=== PATIENT | male | born 1950 | race Caucasian/White ===

== ENCOUNTER 2021-02-13 23:43 | Inpatient (IN) | payer MEDICARE, OTHER ==
[~2021-02-13] VITALS: Ht 180.3 cm; Wt 84.9 kg
[~2021-02-13 23:43] MED LIST: ACCUNEB 0.1.25 MG/1 INH; ACETAMINOPHEN650 M1 PO; AMANTADINE HCL100 M1 PO; AMANTADINE HCL100 M2 PO; AMANTADINE100 MG PO; ARICEPT ODT5 MG PO; ARTANE2 MG PO; ASPIRIN81 M1 PO; ATENOLOL25 MG PO; ATIVAN0.5 MG IM; ATIVAN1 MG IM; ATIVAN1 MG PO; ATIVAN2 MG/ML IM; AUGMENTIN 75 ML75 ML PO; BACTROBAN22 NAS; BROMOCRIPTINE2.5 MG PO; Bromocriptine2.5 MG PO; CETIRIZINE10 MG PO; CIPROFLOXACIN500 M4 PO; CLINDAMYCIN300 MG PO; CYMBALTA30 MG PO; DIFLUCAN100 MG PO; DULCOLAX10 MG PO; DURAGESIC 25 M25 MCG TD; EXELON4.6 MG/24 T; EXELON4.6 MG/24 TD; EXELON9.5 MG/24 T; FANAPT6 MG PO; FANAPT8 MG PO; FLECTOR1.3% TP; FLOMAX0.4 MG PO; GLUCAGON EMERGEN1 M1 IM; GLUCAGON EMERGEN1 MG PO; HALDOL1 MG PO; HUMALOG MI100 UNIT/1 SC; HYDROCODONE BIT1 T11 PO; HYDROXYZINE HCL50 MG PO; HYZAAR 12.5 MG-1 TA1 PO; HYZAAR 50/12.5M1 TAB PO; IBU-8800 MG PO; IBUPROFEN800 MG PO; INVOKAMET1 TA1 PO; JUVEN PO; KEFLEX500 MG PO; KLONOPIN0.5 MG PO; KLONOPIN1 MG PO; LANTUS100 U/ML SC; LASIX40 MG PO; LEVOCETIRIZINE D5 MG PO; LISINOPRIL2.5 MG PO; Lovenox40 MG/0.4 SC; MAG-OX 400400 MG PO; MAGNESIUM OXID400 MG PO; MAXIPIME1 GM IM; METFORMIN500 MG PO; MIRALAX POWDER17 G1 PO; MIRAPEX1.5 MG PO; MOM30 M1 PO; NAMENDA XR TITR28 MG PO; NAMENDA1 TAB PO; NAMENDA10 MG PO; NAMENDA5 MG PO; NEUPRO4 MG/24 HR T; NEUPRO4 MG/24 HR TD; NOVOLOG 70/30 M10 ML SC; NOVOLOG FLEX100 U/ML SC; NOVOLOG MI100 UNIT/1 SQ; NOVOLOG1 UNIT/0.0 SC; NUDEXTA PO; OMEPRAZOLE20 M1 PO; POTASSIUM20 MEQ PO; PRAVACHOL40 MG PO; PRINIVIL5 M1 PO; PROSTAT PO; PROTONIX40 MG PO; REMERON15 M1 PO; REMERON30 M1 PO; REQUIP XL8 MG PO; REQUIP0.5 MG PO; REQUIP2 MG PO; REQUIP3 MG PO; REQUIP4 MG PO; REQUIP5 MG PO; RESTORIL15 MG PO; SINEMET 25-1001 TA1 PO; SINEMET 25-2501 TA1 PO; SINEMET PO; STRESS PO; TAMSULOSIN HCL0.4 MG PO; TRIHEXYPHENIDYL2 M3 PO; TRIHEXYPHENIDYL2 MG PO; TYLENOL 8 HOUR650 MG PO; TYLENOL650 M1 PO; VICODIN1 TAB PO; VITAMIN B11000 MCG/M IM; VITAMIN B121000 MCG IM; VITAMIN D1000 IU PO; VITAMIN D2000 IU PO; ZOFRAN4 MG/5 ML PO; ZYRTEC10 M1 PO
[2021-02-13 23:57] VITALS: BP 132/66
[2021-02-14] VITALS (7 sets, daily range): BP systolic 110–145; BP diastolic 58–87
[2021-02-14 00:10] LABS: BASO % 0.1 % (0.0-1.0); HEMATOCRIT 47.9 % (42.0-52.0); LYMPH # 0.5 10*3/uL (1.3-4.4); LYMPH % 6.6 % (27.0-41.0); MEAN CELL VOLUME 90.7 fl (80.0-94.0); MEAN CORPUSCULAR HGB 30.1 pg (27.0-31.0); MEAN CORPUSCULAR HGB CONC 33.2 g/dl (33.0-37.0); MEAN PLATELET VOLUME 11.4 fl (9.6-12.3); MONO # 0.4 10*3/uL (0.1-1.0); MONO % 5.3 % (3.0-9.0); NEUT # 7.1 10*3/uL (2.3-7.9); NEUT % 87.9 % (47.0-73.0); PLATELET COUNT AUTOMATED 181 10*3/uL (130-400); RED BLOOD COUNT 5.28 10*6/uL (4.50-5.90); RED CELL DISTRI WIDTH 12.9 % (0-14.5); WHITE BLOOD COUNT 8.1 10*3/uL (4.8-10.8)
[2021-02-14 00:35] LABS: ALBUMIN 3.1 gm/dl (3.1-4.5); ALKALINE PHOSPHATASE 48 U/L (45-117); BUN 19 mg/dl (7-24); CHLORIDE 100 mmol/L (98-107); POTASSIUM 3.5 mmol/L (3.5-5.1); SGOT/AST 18 IU/L (3-35); SGPT/ALT 8 U/L (12-78); SODIUM 138 mmol/L (136-145); TOTAL PROTEIN 7.1 gm/dL (6.4-8.2)
[2021-02-14 01:33] LABS: BILIRUBIN 1+ (Negative); BLOOD Negative (Negative); CLARITY Clear (Clear); COLOR Dark Yellow (Yellow); GLUCOSE Trace (Negative); KETONE 2+ (Negative); LEUKO ESTERASE Negative (Negative); NITRITE Negative (Negative); SPECIFIC GRAVITY >= 1.030 (1.001-1.030)
[2021-02-14 01:53] LABS: BACTERIA TRACE
[2021-02-14 06:05] LABS: ALBUMIN 2.8 gm/dl (3.1-4.5); BUN 21 mg/dl (7-24); CHLORIDE 102 mmol/L (98-107); CREATININE 0.85 mg/dL (0.70-1.30); POTASSIUM 3.9 mmol/L (3.5-5.1); SGOT/AST 18 IU/L (3-35); SGPT/ALT 13 U/L (12-78); SODIUM 137 mmol/L (136-145)
[2021-02-14 06:08] LABS: ALKALINE PHOSPHATASE 42 U/L (45-117); TOTAL PROTEIN 6.6 gm/dL (6.4-8.2)
[2021-02-14 06:28] LABS: HEMATOCRIT 46.1 % (42.0-52.0); LYMPH # 0.5 10*3/uL (1.3-4.4); LYMPH % 6.9 % (27.0-41.0); MEAN CELL VOLUME 92.9 fl (80.0-94.0); MEAN CORPUSCULAR HGB 30.2 pg (27.0-31.0); MEAN CORPUSCULAR HGB CONC 32.5 g/dl (33.0-37.0); MONO # 0.3 10*3/uL (0.1-1.0); MONO % 4.8 % (3.0-9.0); NEUT # 6.2 10*3/uL (2.3-7.9); PLATELET COUNT AUTOMATED 164 10*3/uL (130-400); RED BLOOD COUNT 4.96 10*6/uL (4.50-5.90); WHITE BLOOD COUNT 7.1 10*3/uL (4.8-10.8)
[2021-02-14] MEDS ORDERED: NAMENDA5 M1 PO (12:14)
[2021-02-14] MEDS ORDERED: NAMENDA10 MG PO (12:14)
[2021-02-14] MEDS ORDERED: HEARTBURN PREVE20 MG PO (12:17)
[2021-02-14] MEDS ORDERED: METFORMIN HYDR500 MG PO (12:20)
[2021-02-14] MEDS ORDERED: ELIQUIS5 M1 PO (12:21)
[2021-02-14] MEDS ORDERED: MIRALAX POWDER17 G1 PO (12:23)
[2021-02-15] VITALS: BP 169/77
[2021-02-15 06:17] LABS: HEMATOCRIT 45.7 % (42.0-52.0); LYMPH # 0.5 10*3/uL (1.3-4.4); LYMPH % 12.9 % (27.0-41.0); MEAN CELL VOLUME 91.6 fl (80.0-94.0); MEAN CORPUSCULAR HGB 29.9 pg (27.0-31.0); MEAN CORPUSCULAR HGB CONC 32.6 g/dl (33.0-37.0); MEAN PLATELET VOLUME 11.8 fl (9.6-12.3); MONO # 0.2 10*3/uL (0.1-1.0); MONO % 4.5 % (3.0-9.0); NEUT # 3.1 10*3/uL (2.3-7.9); NEUT % 82.1 % (47.0-73.0); PLATELET COUNT AUTOMATED 183 10*3/uL (130-400); RED BLOOD COUNT 4.99 10*6/uL (4.50-5.90); RED CELL DISTRI WIDTH 12.9 % (0-14.5); WHITE BLOOD COUNT 3.8 10*3/uL (4.8-10.8)
[2021-02-15 06:29] LABS: BUN 22 mg/dl (7-24); CHLORIDE 107 mmol/L (98-107); LDH 152 U/L (87-241); POTASSIUM 3.7 mmol/L (3.5-5.1); SODIUM 142 mmol/L (136-145)
[2021-02-15 08:00] VITALS: BP 160/94
[2021-02-15 12:00] VITALS: BP 128/45
[2021-02-15 16:00] VITALS: BP 116/68
[2021-02-15 20:00] VITALS: BP 159/90
[2021-02-16] VITALS: BP 111/65
[2021-02-16 05:37] LABS: ALBUMIN 2.5 gm/dl (3.1-4.5); ALKALINE PHOSPHATASE 34 U/L (45-117); BUN 31 mg/dl (7-24); CHLORIDE 105 mmol/L (98-107); LDH 240 U/L (87-241); POTASSIUM 3.8 mmol/L (3.5-5.1); SGOT/AST 29 IU/L (3-35); SGPT/ALT 23 U/L (12-78); SODIUM 140 mmol/L (136-145); TOTAL PROTEIN 6.4 gm/dL (6.4-8.2)
[2021-02-16 06:19] LABS: HEMATOCRIT 46.5 % (42.0-52.0); LYMPH # 0.4 10*3/uL (1.3-4.4); LYMPH % 19.3 % (27.0-41.0); MEAN CELL VOLUME 93.4 fl (80.0-94.0); MEAN CORPUSCULAR HGB 29.7 pg (27.0-31.0); MEAN CORPUSCULAR HGB CONC 31.8 g/dl (33.0-37.0); MEAN PLATELET VOLUME 11.7 fl (9.6-12.3); MONO # 0.2 10*3/uL (0.1-1.0); MONO % 10.4 % (3.0-9.0); NEUT # 1.4 10*3/uL (2.3-7.9); NEUT % 69.8 % (47.0-73.0); PLATELET COUNT AUTOMATED 184 10*3/uL (130-400); RED BLOOD COUNT 4.98 10*6/uL (4.50-5.90); RED CELL DISTRI WIDTH 12.8 % (0-14.5)
[2021-02-16 08:00] VITALS: BP 150/87
[2021-02-16 11:26] LABS: BILIRUBIN Negative (Negative); BLOOD Trace-Intact (Negative); CLARITY Clear (Clear); COLOR Yellow (Yellow); GLUCOSE Negative (Negative); KETONE 1+ (Negative); LEUKO ESTERASE Negative (Negative); NITRITE Negative (Negative); SPECIFIC GRAVITY >= 1.030 (1.001-1.030)
[2021-02-16 12:00] VITALS: BP 138/69
[2021-02-16 16:00] VITALS: BP 136/82
[2021-02-16 20:00] VITALS: BP 144/89
[2021-02-17] VITALS: BP 125/70
[2021-02-17 05:56] LABS: BUN 31 mg/dl (7-24); CHLORIDE 105 mmol/L (98-107); CREATININE 0.67 mg/dL (0.70-1.30); POTASSIUM 3.6 mmol/L (3.5-5.1); SODIUM 138 mmol/L (136-145)
[2021-02-17 06:04] LABS: HEMATOCRIT 42.1 % (42.0-52.0); LYMPH # 0.4 10*3/uL (1.3-4.4); LYMPH % 13.9 % (27.0-41.0); MEAN CELL VOLUME 90.9 fl (80.0-94.0); MEAN CORPUSCULAR HGB 30.2 pg (27.0-31.0); MEAN CORPUSCULAR HGB CONC 33.3 g/dl (33.0-37.0); MEAN PLATELET VOLUME 11.5 fl (9.6-12.3); MONO # 0.3 10*3/uL (0.1-1.0); MONO % 10.8 % (3.0-9.0); NEUT # 1.9 10*3/uL (2.3-7.9); NEUT % 74.1 % (47.0-73.0); PLATELET COUNT AUTOMATED 180 10*3/uL (130-400); RED BLOOD COUNT 4.63 10*6/uL (4.50-5.90); RED CELL DISTRI WIDTH 12.6 % (0-14.5); WHITE BLOOD COUNT 2.6 10*3/uL (4.8-10.8)
[2021-02-17 08:00] VITALS: BP 103/50
[2021-02-17 12:00] VITALS: BP 138/110
[2021-02-17 16:00] VITALS: BP 103/59
[2021-02-17 20:00] VITALS: BP 93/64
[2021-02-18] VITALS: BP 130/83
[2021-02-18 08:00] VITALS: BP 114/71
[2021-02-18 08:10] LABS: ALBUMIN 2.1 gm/dl (3.1-4.5); ALKALINE PHOSPHATASE 28 U/L (45-117); CHLORIDE 111 mmol/L (98-107); CREATININE 0.63 mg/dL (0.70-1.30); POTASSIUM 3.4 mmol/L (3.5-5.1); SGOT/AST 29 IU/L (3-35); SGPT/ALT 21 U/L (12-78); SODIUM 146 mmol/L (136-145); TOTAL PROTEIN 5.4 gm/dL (6.4-8.2)
[2021-02-18 08:13] LABS: BUN 20 mg/dl (7-24)
[2021-02-18 12:00] VITALS: BP 126/92
[2021-02-18 16:00] VITALS: BP 105/58
[2021-02-19] VITALS: BP 130/56
[2021-02-19 06:28] LABS: EOS % 0.9 % (1.0-4.0); LYMPH # 0.7 10*3/uL (1.3-4.4); LYMPH % 18.8 % (27.0-41.0); MEAN CELL VOLUME 90.9 fl (80.0-94.0); MEAN CORPUSCULAR HGB 29.8 pg (27.0-31.0); MEAN CORPUSCULAR HGB CONC 32.8 g/dl (33.0-37.0); MEAN PLATELET VOLUME 11.1 fl (9.6-12.3); MONO # 0.4 10*3/uL (0.1-1.0); MONO % 11.3 % (3.0-9.0); NEUT # 2.4 10*3/uL (2.3-7.9); NEUT % 68.1 % (47.0-73.0); PLATELET COUNT AUTOMATED 161 10*3/uL (130-400); RED BLOOD COUNT 4.29 10*6/uL (4.50-5.90); RED CELL DISTRI WIDTH 12.8 % (0-14.5); WHITE BLOOD COUNT 3.5 10*3/uL (4.8-10.8)
[2021-02-19 06:48] LABS: ALBUMIN 1.9 gm/dl (3.1-4.5); BUN 15 mg/dl (7-24); CHLORIDE 106 mmol/L (98-107); CREATININE 0.48 mg/dL (0.70-1.30); POTASSIUM 3.5 mmol/L (3.5-5.1); SGOT/AST 29 IU/L (3-35); SGPT/ALT 20 U/L (12-78); SODIUM 141 mmol/L (136-145)
[2021-02-19 06:49] LABS: ALKALINE PHOSPHATASE 25 U/L (45-117); TOTAL PROTEIN 5.1 gm/dL (6.4-8.2)
[2021-02-19 08:00] VITALS: BP 126/64
[2021-02-19 12:00] VITALS: BP 130/62
[2021-02-19 15:01] VITALS: BP 111/69
[2021-02-19 15:09] VITALS: BP 136/81
[2021-02-19 20:00] VITALS: BP 111/61
[2021-02-20] VITALS: BP 152/84
[2021-02-20 07:50] LABS: EOS # 0.1 10*3/uL (0.0-0.4); EOS % 2.2 % (1.0-4.0); HEMATOCRIT 39.2 % (42.0-52.0); LYMPH # 0.7 10*3/uL (1.3-4.4); LYMPH % 16.9 % (27.0-41.0); MEAN CELL VOLUME 89.1 fl (80.0-94.0); MEAN CORPUSCULAR HGB 29.8 pg (27.0-31.0); MEAN CORPUSCULAR HGB CONC 33.4 g/dl (33.0-37.0); MEAN PLATELET VOLUME 10.8 fl (9.6-12.3); MONO # 0.5 10*3/uL (0.1-1.0); NEUT # 2.8 10*3/uL (2.3-7.9); NEUT % 66.7 % (47.0-73.0); PLATELET COUNT AUTOMATED 169 10*3/uL (130-400); RED CELL DISTRI WIDTH 12.6 % (0-14.5); WHITE BLOOD COUNT 4.2 10*3/uL (4.8-10.8)
[2021-02-20 08:00] VITALS: BP 124/62
[2021-02-20 08:14] LABS: ALKALINE PHOSPHATASE 29 U/L (45-117); BUN 13 mg/dl (7-24); CHLORIDE 102 mmol/L (98-107); CREATININE 0.45 mg/dL (0.70-1.30); POTASSIUM 3.7 mmol/L (3.5-5.1); SGOT/AST 26 IU/L (3-35); SGPT/ALT 23 U/L (12-78); SODIUM 136 mmol/L (136-145); TOTAL PROTEIN 5.4 gm/dL (6.4-8.2)
[2021-02-20 12:00] VITALS: BP 132/64
[2021-02-20 16:00] VITALS: BP 112/72
[2021-02-20 20:00] VITALS: BP 147/84
[2021-02-21] VITALS: BP 146/77
[2021-02-21 07:43] LABS: BASO % 0.5 % (0.0-1.0); EOS # 0.2 10*3/uL (0.0-0.4); EOS % 3.8 % (1.0-4.0); HEMATOCRIT 41.3 % (42.0-52.0); LYMPH # 0.8 10*3/uL (1.3-4.4); LYMPH % 17.6 % (27.0-41.0); MEAN CELL VOLUME 89.6 fl (80.0-94.0); MEAN CORPUSCULAR HGB 29.5 pg (27.0-31.0); MEAN CORPUSCULAR HGB CONC 32.9 g/dl (33.0-37.0); MONO # 0.6 10*3/uL (0.1-1.0); MONO % 13.6 % (3.0-9.0); NEUT # 2.7 10*3/uL (2.3-7.9); NEUT % 62.9 % (47.0-73.0); PLATELET COUNT AUTOMATED 189 10*3/uL (130-400); RED BLOOD COUNT 4.61 10*6/uL (4.50-5.90); RED CELL DISTRI WIDTH 12.7 % (0-14.5); WHITE BLOOD COUNT 4.3 10*3/uL (4.8-10.8)
[2021-02-21 08:00] VITALS: BP 149/65
[2021-02-21 08:03] LABS: BUN 12 mg/dl (7-24); CHLORIDE 103 mmol/L (98-107); CREATININE 0.44 mg/dL (0.70-1.30); POTASSIUM 3.7 mmol/L (3.5-5.1); SODIUM 139 mmol/L (136-145)
[2021-02-21 12:00] VITALS: BP 128/53
[2021-02-21] MEDS ORDERED: MORPHINE S10 MG/5 M2 PO (13:53)
[2021-02-21] MEDS ORDERED: ATIVAN ORAL C2 MG/ML PO (13:54)
== END 2021-02-21 17:15 | DRG 871 ==
LOC: ED 23:43 → EDHOLD 02-14 03:13 → 4E 02-14 03:13
PROVIDERS: Internal Medicine; ADMIT Internal Medicine; ATTEND Internal Medicine
PROC: XW033E5 Introduction of Remdesivir Anti-infective into Peripheral Vein, Percutaneous Approach, New Technology Group 5 (ICD-10-PCS; 2021-02-15)
PROC: 02HV33Z Insertion of Infusion Device into Superior Vena Cava, Percutaneous Approach (ICD-10-PCS; principal; 2021-02-20)
DX: A41.9 Sepsis, unspecified organism (principal); J96.01 Acute respiratory failure with hypoxia; K72.00 Acute and subacute hepatic failure without coma; J12.9 Viral pneumonia, unspecified; Z20.822 Contact with and (suspected) exposure to COVID-19; F41.9 Anxiety disorder, unspecified; R13.10 Dysphagia, unspecified; E11.65 Type 2 diabetes mellitus with hyperglycemia; F32.A Depression, unspecified; I10 Essential (primary) hypertension; E55.9 Vitamin D deficiency, unspecified; K59.00 Constipation, unspecified; K21.9 Gastro-esophageal reflux disease without esophagitis; N40.0 Benign prostatic hyperplasia without lower urinary tract symptoms; G20 Parkinson's disease; I69.320 Aphasia following cerebral infarction; Z86.69 Personal history of other diseases of the nervous system and sense organs; Z79.899 Other long term (current) drug therapy; Z79.4 Long term (current) use of insulin; Z68.25 Body mass index [BMI] 25.0-25.9, adult